=== PATIENT | female | born 1950 | race Hispanic/Latino ===

== ENCOUNTER 2017-03-22 06:09 | Inpatient (IN) | payer MEDICARE ==
[2017-03-21 13:23] LABS: Basophils % (Auto) 1.2 % (0.0-1.8); Eosinophils % (Auto) 3.6 % (0.0-4.3); Hematocrit 39.2 % (30.3-42.9); Hemoglobin 13.8 gm/dl (10.1-14.3); Mean Corpuscular HGB Conc 35 % (30-34); Mean Corpuscular Hemoglobin 32 pg (28-32); Mean Corpuscular Volume 90 fl (79-97); Platelet Count 189 K/mm3 (140-440); Red Blood Count 4.39 M/mm3 (3.65-5.03); Red Cell Distribution Width 12.8 % (13.2-15.2); White Blood Count 4.4 K/mm3 (4.5-11.0)
--- NOTE | 2017-03-21 13:28 | Anesthesia Consultation ---
Anesthesia Consult and Med Hx Date of service: 03/21/17 - Airway Anesthetic Teeth Evaluation: Good ROM Head & Neck: Adequate Mental/Hyoid Distance: Adequate Mallampati Class: Class II Intubation Access Assessment: Probably Good - Pulmonary Exam CTA: Yes - Cardiac Exam Cardiac Exam: RRR - Pre-Operative Health Status ASA Pre-Surgery Classification: ASA3 Proposed Anesthetic Plan: General - Cardiovascular System Hx Hypertension: Yes Hx Heart Murmur: Yes - Central Nervous System Hx Back Pain: Yes (sleeps in recliner due to back issues) Hx Psychiatric Problems: No - Other Systems Hx Alcohol Use: Yes (occas) Hx Cancer: No
[2017-03-21 13:35] LABS: Anion Gap 18 mmol/L; Blood Urea Nitrogen 22 mg/dL (7-17); Calcium 9.6 mg/dL (8.4-10.2); Carbon Dioxide 25 mmol/L (22-30); Chloride 101.3 mmol/L (98-107); Glucose 219 mg/dL (65-100); Sodium 140 mmol/L (137-145)
[~2017-03-22 06:09] MED LIST: ANCEF/STERILE WATER 2 GM/20 ML 2 GM/20 ML SYRINGE IV NR; NACL 0.9% 1000 ML 1,000 ML IV SCH
[2017-03-22] MEDS ORDERED: NACL BACTERIOSTATIC INFILTRATI ONE (06:42)
[2017-03-22] MEDS ORDERED: DIPRIVAN 10 MG/ML IV ONE (07:10)
[2017-03-22] MEDS ORDERED: DILAUDID ONE (07:11)
[2017-03-22] MEDS ORDERED: XYLOCAINE MPF 2% ONE (07:11)
[2017-03-22] MEDS ORDERED: ZOFRAN ONE (07:11)
[2017-03-22] MEDS ORDERED: ZEMURON IV ONE (07:12)
[2017-03-22] MEDS ORDERED: HEPARIN 10,000 UNITS/10 ML ONE ×2 (07:12→07:35)
[2017-03-22] MEDS ORDERED: DECADRON ONE (07:12)
--- NOTE | 2017-03-22 07:29 | Anesthesia Day of Surgery ---
Anesthesia Day of Surgery - Day of Surgery Patient Examined: Yes Patient H&P Reviewed: Yes Patient is NPO: Yes
[2017-03-22] MEDS ORDERED: XYLOCAINE 1% MPF 5 mL ONE (07:35)
[2017-03-22] MEDS ORDERED: GELFOAM TP ONE ×2 (07:35→10:14)
[2017-03-22] MEDS ORDERED: THROMBIN (BOVINE) TP ONE (07:35)
[2017-03-22] MEDS ORDERED: NACL 0.9% 500 ML 500 ML ONE (07:35)
[2017-03-22] MEDS ORDERED: MARCAINE 0.5% 30 ML INFILTRATI ONE (07:50)
[2017-03-22] MEDS ORDERED: PEPCID IV NR (08:00)
[2017-03-22] MEDS ORDERED: VANCOMYCIN/NS 1 GM/250 ML 1 GM/250 ML BAG IV NR (08:00)
[2017-03-22] MEDS ORDERED: RIFADIN ONE (09:35)
[2017-03-22] MEDS ORDERED: NACL 0.9% IR ONE (10:14)
[2017-03-22] MEDS ORDERED: MARCAINE 0.5% INFILTRATI ONE (10:15)
[2017-03-22] MEDS ORDERED: THROMBIN SPRAYKIT (BOVINE) TP ONE (10:15)
[2017-03-22] MEDS ORDERED: HEPARIN 10,000 UNITS/10 ML 2,000 UNIT in NACL 0.9% 500 ML 500 ML IR ONE (10:16)
[2017-03-22] MEDS ORDERED: RIFADIN 600 MG in NACL 0.9% 50 ML IR ONE (10:16)
[2017-03-22] MEDS ORDERED: ZOFRAN IV PRN (12:04)
[2017-03-22] MEDS ORDERED: MORPHINE IV PRN ×2 (12:04)
[2017-03-22] MEDS ORDERED: NARCAN 0.4 MG/1 ML IV PRN (12:04)
[2017-03-22] MEDS ORDERED: NORCO 5/325 PO PRN (12:04)
--- NOTE | 2017-03-22 12:10 | Post Operative Note ---
Pre-op diagnosis: Asymptomatic Right Carotid Artery Stenosis Post-op diagnosis: same Findings: Focal, near-occlusive plaque at carotid bifurcation Procedure: 1. Right Carotid Endarterectomy with patch closure 2. Intraoperative duplex of carotid artery Anesthesia: OSVALDO Surgeon: CLARENCE HERNÁNDEZ Manager Center: [facility] Estimated blood loss: minimal Pathology: list (carotid plaque) Specimen disposition: to lab Condition: stable Disposition: PACU
--- NOTE | 2017-03-22 12:21 | Admit Criteria Form ---
Admission Criteria Documentation: AMBULATORY SURGERY EXCEPTION CRITERIA Ambulatory Surgery Exception Criteria ( Place 'X' for any and all applicable criteria): Surgery or procedure performed on ambulatory basis may require inpatient stay for[A] ANY ONE of the following(1)(2)(3)(4)(5)(6)(7)(8)(9): [X] I. A preoperative situation, condition, or finding that warrants inpatient stay as indicated by ANY ONE of the following: [] a) Inpatient care needed because of severity of a disease or condition rather than the surgery (eg, severe cardiac or respiratory disease, severe infection) (15) (16 ) (17) (18) [] b) Emergent procedure (eg, angioplasty for acute ischemia)(19) [] c) Complex surgical approach or situation as indicated by ANY ONE of the following(3): [] i) Open approach needed instead of usual endoscopic, transcatheter, or other less invasive procedure [] ii) Difficult approach because of previous operation [] iii) Airway monitoring required after open neck procedures(20)(21) [] iv) Large mass requiring unusually extensive dissection [] v) Additional complicating feature requiring inpatient care (eg, drain management)(22(23): [X] d) Major surgery in a pt with high anesthetic risk as indicated by ANY ONE of the following (2)(3)(5)(7)(8): [X] i) ASA risk class III or higher (severe systemic disease impairing function) [D] [] ii) Advanced age (eg, older than 85 years)(14)(24) [] iii) Symptomatic heart failure(25) [] iv) Symptomatic asthma or COPD(8)(21) [] v) Morbid obesity with hemodynamic or respiratory problems(20)( 21)(26)(27) [] vi) Obstructive sleep apnea(20)(21) [] vii) Former premature infants who are younger than 60 weeks [] viii) High risk for severe postoperative abnormalities (eg, severe postoperative hypocalcemia after parathyroidectomy for severe hyperparathyroidism)(27)( 28) [] ix) Unstable angina(25) [] e) Drug-related risk requiring inpatient stay as indicated by ANY ONE of the following(5)(10)(14)(32)(33) [] i) Procedure requires discontinuing drugs or other therapy (eg , antiarrhythmic medication, antiseizure medication), which necessitates inpatient observation or treatment.(18)(31) [] ii) Major surgery and high risk drug use as indicated by ANY ONE of the following: [] 1) Active abuse of cocaine or similar drug [] 2) Monoamine oxidase inhibitor use [] 3) Other drug identified as posing risk [] f) Inadequate outpatient care situation as indicated by ANY ONE of the following(5)(10)(14)(32)(33) [] i) Patient lives remote from medical facility and procedure has urgent complication potential, and temporary nearby residence cannot be arranged [] ii) Patient will have postprocedure incapacitation and inadequate assistance at home, or alternative level of care cannot be arranged. [] iii) Patient will have long general anesthesia or procedure side effect resolution time, and competent person to stay with patient on first postoperative night at home or alternative level of care cannot be arranged. []iv) Other inadequate outpatient situation that cannot be handled by other means [] II. A perioperative event, condition, or finding that warrants inpatient stay as indicated by ANY ONE of the following (1)(2)(3): [] a) Inadequate physiologic recovery: cardiovascular, respiratory, or hemodynamic status not normal or near preoperative baseline(18) [] b) Hemodynamic instability [] c) Patient not alert with near normal or baseline mental status [] d) Temperature not normal or as expected and not appropriate for outpatient treatment of condition [] e) Ambulatory or appropriate activity level status not yet achieved post procedure [E](34)(35)(36) [] f) Operative site not appropriate (eg, unexpected or excessive drainage or bleeding) [] g) Postoperative effects not resolved or adequately managed (eg, significant pain or vomiting not appropriate for outpatient or next level of care)(10)(12) [] h) Complicating features requiring inpatient care as indicated by ANY ONE of the following(37): [] i) Severe complications of procedure (eg, bowel injury, airway compromise, vascular injury,severe hemorrhage) [] ii) Extensive (eg, dissection far beyond usual scope of procedure ) or prolonged (eg, 120 minutes beyond usual) surgery needed requiring inpatient postoperative care [] iii) Conversion to an open or complex procedure that requires inpatient care (eg, open vs laparoscopic cholecystectomy, abdominal vs vaginal hysterectomy)(38) [] iv) Comorbid condition or test result identified during or post procedure that requires inpatient care (7) [] v) Malignant hyperthermia(30) [] vi) Other complicating feature requiring inpatient care(22)(23) Inpatient stay may be needed until ALL of the following are present (1)(2)(3)(4) (5)(6)(10)(14)(33)(40): []a) Physiologic recovery: cardiovascular, respiratory, and hemodynamic status normal or near preoperative baseline []b) Hemodynamic stability []c) Patient alert, with near normal or baseline mental status []d) Temperature appropriate: patient afebrile or temperature appropriate for outpt treatment of condition []e) Activity level appropriate: ambulatory or appropriate activity level post procedure []f) Operative site appropriate as indicated by ALL of the following: []i) Site dry or with expected drainage []ii) Any blood noted is as expected for procedure. []g) Postoperative effects resolved or managed as indicated by ALL of the following: []i) Pain management appropriate for outpatient (or next level of) care(10) []ii) Minimal nausea and vomiting: if present, successfully treated with oral medication(12) []iii) Headache, dizziness, or drowsiness (if present) are mild. []h) Voiding status acceptable as indicated by ANY ONE of the following: []i) Voiding spontaneously []ii) No voiding but instructions given for follow-up in 6 to 8 hours []iii) Urinary catheter in place, and instructions given for follow-up []i) Complicating features requiring inpatient care manageable at a lower level of care(37) []j) Comorbid conditions manageable at a lower level of care(37) The original [employer] content created by [employer] has been revised. The portions of the content which have been revised are identified through the use of italic text or in bold, and [facility] [employer] has neither reviewed nor approved the modified material. All other unmodified content is copyright [employer]. Please see references footnoted in the original [employer] edition 2016 Admission Criteria Met: Yes
--- NOTE | 2017-03-22 12:37 | Consultation ---
History of Present Illness - Reason for Consult Consult date: 03/22/17 Post-OP ICU monitoring Requesting physician: CLARENCE HERNÁNDEZ - History of Present Illness 66 y/o female status post carotid endarectomy Past History Past Medical History: hypertension Medications and Allergies Allergies Allergy/AdvReac Type Severity Reaction Status Date / Time atorvastatin calcium Allergy muscle pain Verified 03/16/17 16:54 [From Lipitor] cephalexin monohydrate Allergy pseudomembraneous Verified 03/16/17 16:54 [From Keflex] colitis clindamycin Allergy Hives Verified 03/16/17 16:54 clindamycin HCl Allergy Unknown Verified 03/16/17 16:54 [From Cleocin] clindamycin palmitate HCl Allergy Unknown Verified 03/16/17 16:54 [From Cleocin] clindamycin phosphate Allergy Unknown Verified 03/16/17 16:54 [From Cleocin] erythromycin base Allergy UTI Verified 03/16/17 16:54 guaifenesin [From Robitussin] Allergy Hives Verified 03/16/17 16:54 naproxen sodium [From Aleve] Allergy Unknown Verified 03/16/17 16:54 Home Medications Medication Instructions Recorded Confirmed Last Taken Type Aspirin [Adult Low Dose Aspirin EC] 2 tab PO DAILY 03/16/17 03/16/17 03/21/17 21 :00 History Magnesium 200 mg PO DAILY 03/16/17 03/16/17 03/21/17 21:00 History Multivitamin Tab [Multiple Vitamin 1 each PO QDAY 03/16/17 03/16/17 03/21/17 21: 00 History TAB (Theragran)] Olmesartan/Hydrochlorothiazide 1 tab PO QDAY 03/16/17 03/22/17 03/21/17 21:00 History [Benicar HCT 20-12.5 mg] [place]-3 Fatty Acids/Fish Oil [Fish 1,000 mg PO DAILY 03/16/17 03/22/17 03/21/17 21:00 History Oil] Active Meds: Active Medications Acetaminophen/Hydrocodone Bitart ([place] 5/325) each PO Q6H PRN PRN Reason: Pain, Moderate (4-6) Aspirin (Halfprin Ec) mg PO DAILY ELLE Clopidogrel Bisulfate (Plavix) 75 mg PO QDAY ELLE Docusate Sodium (Colace) 100 mg PO BID ELLE Famotidine (Pepcid) 20 mg IV PREOP NR Stop: 03/22/17 23:59 Last Admin: 03/22/17 07:42 Dose: 20 mg Fish Oil (Fish Oil) 1,000 mg PO DAILY ELLE Sodium Chloride (Nacl 0.9% 1000 Ml) 1,000 mls @ 42 mls/hr IV DIRECT ELLE Last Admin: 03/22/17 07:00 Dose: 42 mls/hr Vancomycin HCl (Vancomycin/Ns 1 Gm/250 Ml) 1 gm in 250 mls @ 167.007 mls/hr IV PREOP NR PRN Reason: Protocol Stop: 03/22/17 23:59 Last Admin: 03/22/17 07:49 Dose: 167.007 mls/hr Dopamine HCl/Dextrose (Intropin Drip 800 Mg/D5w 250 Ml) 250 mls @ 9.777 mls/hr IV TITR ELLE; 5 MCG/KG/MIN PRN Reason: Protocol Sodium Nitroprusside 50 mg/ (Dextrose) 250 mls @ 7.82 mls/hr IV TITR ELLE; 0.25 MCG/KG/MIN PRN Reason: Protocol Sodium Chloride (Nacl 0.9% 1000 Ml) 1,000 mls @ 100 mls/hr IV DIRECT ELLE Miscellaneous Medication (Magnesium [Magnesium]) 200 mg PO DAILY ELLE Miscellaneous Medication (Olmesartan/Hydrochlorothiazide [Benicar Hct 20-12.5 Mg ]) 1 tab PO QDAY ELLE Morphine Sulfate (Morphine) 2 mg IV Q4H PRN PRN Reason: Pain, Moderate (4-6) Morphine Sulfate (Morphine) 4 mg IV Q4H PRN PRN Reason: Pain , Severe (7-10) Multivitamins (Theragran Tab) 1 each PO QDAY ELLE Naloxone HCl (Narcan 0.4 Mg/1 Ml) 0.1 mg IV Q2MIN PRN PRN Reason: Res Rate </= 8 or 02 SAT < 92% Ondansetron HCl (Zofran) 4 mg IV Q8H PRN PRN Reason: Nausea And Vomiting Exam - Constitutional Vitals: Temp Pulse Resp BP Pulse Ox 97.2 F L 68 15 123/55 93 03/22/17 11:54 03/22/17 12:00 03/22/17 12:00 03/22/17 12:00 03/22/17 12:00 Results - Labs CBC & Chem 7: 03/21/17 13:05 03/21/17 13:05 Labs: Abnormal lab results 03/21/17 03/21/17 03/22/17 Range/Units 13:05 13:05 06:50 WBC 4.4 L (4.5-11.0) K/mm3 MCHC 35 H (30-34) % RDW 12.8 L (13.2-15.2) % [place] % (Auto) 14.7 H (0.0-7.3) % Lymph # 0.8 L (1.2-5.4) K/mm3 BUN 22 H (7-17) mg/dL Glucose 219 H (65-100) mg/dL POC Glucose 202 H (70-105) 03/22/17 Range/Units 12:01 WBC (4.5-11.0) K/mm3 MCHC (30-34) % RDW (13.2-15.2) % [place] % (Auto) (0.0-7.3) % Lymph # (1.2-5.4) K/mm3 BUN (7-17) mg/dL Glucose (65-100) mg/dL POC Glucose 229 H (70-105) Assessment and Plan 66 y/o female status post carotid endarterectomy 1. ICU monitoring 2. Follow up vascular recs.
[2017-03-22] MEDS ORDERED: INTROPIN DRIP 800 MG/D5W 250 ML 800 MG/250 ML BAG IV SCH (13:00)
--- NOTE | 2017-03-22 13:16 | Post Anesthesia Evaluation ---
- Post Anesthesia Evaluation Patient Participated: Yes Airway Patent: Yes Stable Respiratory Function: Yes Nausea/Vomiting: No Temp > 96.8F: Yes Pain Manageable: Yes Adequeate Hydration: Yes Anesthesia Complications: No Block Receding Appropriately: Not Applicable Patient on Ventilator: No
[2017-03-22] MEDS ORDERED: NACL 0.9% 1000 ML 1,000 ML IV SCH (14:00)
[2017-03-22] MEDS ORDERED: NIPRIDE 50 MG in D5W 248 ML IV SCH (14:00)
--- NOTE | 2017-03-22 15:37 | Operative Report ---
PREOPERATIVE DIAGNOSIS: High-grade right carotid artery stenosis, asymptomatic. POSTOPERATIVE DIAGNOSIS: High-grade right carotid artery stenosis, asymptomatic. PROCEDURE: 1. Carotid endarterectomy with Dacron patch closure. 2. Intraoperative carotid duplex results. SURGEON: Elijah Haro MD [employer]: Mik Quinn PA-C. COMPLICATIONS: None. FINDINGS: High-grade stenosis at the level of the common carotid artery bifurcation, successful patch closure. INDICATIONS: This patient was found to have high-grade stenosis based on duplex imaging. She met indication for treatment for stroke prevention. She was brought to surgery for this purpose. ANESTHESIA: General. ESTIMATED BLOOD LOSS: 50 mL. COMPLICATIONS: None. DETAIL OF PROCEDURE : Consent was obtained. The patient was taken to the operating room and placed in supine position. Appropriate levels of anesthesia was provided. The patient's cervical area was prepped and draped in sterile fashion. Monitoring lines have been previously placed. The patient's neck and back was positioned appropriately. The procedure began with an incision along the lateral aspect of the neck. We dissected through the subcutaneous tissue and the platysma muscle. We then retracted the sternocleidomastoid posteriorly and then identified the common carotid artery behind the internal jugular vein. The structure was mobilized. The common carotid artery was identified and then encircled within [place]. The facial vein was isolated, transected, and tied. Branch of the ansa was transected after tying. We proceeded on with dissection of the common carotid artery bifurcation. We then exposed the internal carotid artery and protected this with a vessel loop. The external carotid artery was controlled with a vessel loop as well. We administered heparin and after 3 minutes circulation time, we clamped the internal carotid artery with a Kartchner clamp and then controlled the inflow in the external carotid artery. We used an 11 blade to create an endarterectomy. This extended past the plaque and into more normal internal carotid artery. We backbled the internal carotid artery and saw no need for shunting at this time. We used a right angle clamp and a [place] elevator to capture the plaque. The plaque was retrieved from the external carotid artery. We transected the plaque near the common carotid artery bifurcation. The internal carotid artery was then inverted somewhat to retrieve the plaque. This extended higher into the internal carotid artery for approximately 3 cm. At this point, we transected it and then tacked posterior margin of the residual plaque with 7-0 Prolene. This was done in an interrupted fashion. We then irrigated the vessel thoroughly and cleaned all of the loose debris. We then obtained a Dacron patch and soaked this in rifampin. Using 4 needle technique, the patch was sewn into the open internal carotid artery. This was performed without difficulty prior to complete closure. We performed flushing maneuvers. We then irrigated the inner aspects of the vessel thoroughly. At the time of closure, we reestablished flow by allowing blood to the fill the field with back bleeding internal carotid artery. This was temporarily clamped and then we released the clamp and allowed flow to enter the external carotid artery. After several heartbeats to past, we opened the internal carotid artery and then checked for bleeding sites. Patch repairs were performed using 6-0 Prolene. We then used electrocautery to control any bleeding areas in the soft tissue. We used Gelfoam and thrombin and maintained hemostasis. A hockey-stick tipped probe was used to examine the patch. The velocities were acceptable with easily audible diastolic flow. There was no distal patch. There was slight fixed defect which was not flow limiting or obstructive. The proximal margin of the patch and distal appeared to be intact and smooth. No further intervention was necessary at this point. Closure was performed with 3-0 Vicryl on the platysma layer and then skin approximation was performed using 4-0 Monocryl. Dermabond was then applied to the wound. The patient was awakened from anesthesia, having suffered no complications. Neurologically, she was intact. She was taken to the recovery room having suffered no complications. JOB# [id number] CADEN/KRUNAL MARIN
[2017-03-22] MEDS: COLACE PO SCH (23:25)
[2017-03-23] MEDS ORDERED: HALFPRIN EC PO SCH (10:00)
[2017-03-23] MEDS ORDERED: NON-FORMULARY (Olmesartan/Hydrochlorothiazide [Benicar Hct 20-12.5 Mg] 1 TAB) PO SCH (10:00)
[2017-03-23] MEDS ORDERED: THERAGRAN Tab PO SCH (10:00)
[2017-03-23] MEDS ORDERED: PLAVIX PO SCH (10:00)
[2017-03-23] MEDS ORDERED: COZAAR PO SCH (10:00)
[2017-03-23] MEDS ORDERED: FISH OIL PO SCH (10:00)
[2017-03-23] MEDS ORDERED: HCTZ PO SCH (10:00)
[2017-03-23] MEDS ORDERED: MAGNESIUM 200 MG PO SCH (10:00)
[2017-03-23] MEDS ORDERED: MAG-OX PO SCH (10:00)
[2017-03-23] MEDS: COLACE PO SCH (10:07)
--- NOTE | 2017-03-23 11:05 | Progress Note ---
Assessment and Plan 66 y/o female status post carotid endarterectomy 1. Follow up vascular recs 2. May be able for transfer out of unit. 3. Stable from a critical care standpoint. Subjective Date of service: 03/23/17 Interval history: No acute events overnight. No overnight issues. Per nursing has been walking around the unit. Objective - Constitutional Vitals: Vital Signs - 12hr 03/22/17 03/22/17 03/22/17 23:10 23:20 23:30 Temperature Pulse Rate 85 73 75 Pulse Rate [ Apical] Respiratory 19 18 10 L Rate Blood Pressure 139/56 139/56 139/56 O2 Sat by Pulse 96 Oximetry 03/22/17 03/22/17 03/22/17 23:36 23:40 23:50 Temperature Pulse Rate 87 95 H Pulse Rate [ Apical] Respiratory 18 9 L 24 Rate Blood Pressure 139/56 139/56 O2 Sat by Pulse Oximetry 03/23/17 03/23/17 03/23/17 00:00 00:10 00:20 Temperature 98.8 F Pulse Rate 68 67 70 Pulse Rate [ 78 Apical] Respiratory 17 17 14 Rate Blood Pressure 114/55 114/55 114/55 O2 Sat by Pulse 94 94 95 Oximetry 03/23/17 03/23/17 03/23/17 00:30 00:40 00:50 Temperature Pulse Rate 66 69 64 Pulse Rate [ Apical] Respiratory 16 16 16 Rate Blood Pressure 120/59 120/59 120/59 O2 Sat by Pulse 95 95 94 Oximetry 03/23/17 03/23/17 03/23/17 01:00 01:10 01:20 Temperature Pulse Rate 62 62 63 Pulse Rate [ Apical] Respiratory 15 17 13 Rate Blood Pressure 124/60 124/60 120/59 O2 Sat by Pulse 95 95 96 Oximetry 03/23/17 03/23/17 03/23/17 01:30 01:40 01:50 Temperature Pulse Rate 71 62 64 Pulse Rate [ Apical] Respiratory 15 16 13 Rate Blood Pressure 120/59 109/64 109/64 O2 Sat by Pulse 98 96 97 Oximetry 03/23/17 03/23/17 03/23/17 02:00 02:10 02:20 Temperature Pulse Rate 59 L 60 60 Pulse Rate [ Apical] Respiratory 15 13 14 Rate Blood Pressure 131/62 131/62 131/62 O2 Sat by Pulse 95 94 93 Oximetry 03/23/17 03/23/17 03/23/17 02:30 02:40 02:50 Temperature Pulse Rate 61 61 62 Pulse Rate [ Apical] Respiratory 14 16 14 Rate Blood Pressure 120/51 120/51 120/51 O2 Sat by Pulse 94 92 93 Oximetry 03/23/17 03/23/17 03/23/17 03:00 03:10 03:20 Temperature Pulse Rate 62 73 61 Pulse Rate [ Apical] Respiratory 14 13 13 Rate Blood Pressure 109/49 109/49 109/49 O2 Sat by Pulse 92 97 93 Oximetry 03/23/17 03/23/17 03/23/17 03:30 03:40 03:50 Temperature Pulse Rate 60 60 60 Pulse Rate [ Apical] Respiratory 13 14 13 Rate Blood Pressure 115/58 115/58 115/58 O2 Sat by Pulse 98 95 93 Oximetry 03/23/17 03/23/17 03/23/17 04:00 04:10 04:20 Temperature 98.9 F Pulse Rate 62 70 63 Pulse Rate [ 80 Apical] Respiratory 16 15 15 Rate Blood Pressure 115/58 135/60 135/60 O2 Sat by Pulse 95 96 96 Oximetry 03/23/17 03/23/17 03/23/17 04:30 04:40 04:50 Temperature Pulse Rate 62 64 62 Pulse Rate [ Apical] Respiratory 14 15 15 Rate Blood Pressure 125/58 125/58 125/58 O2 Sat by Pulse 96 96 95 Oximetry 03/23/17 03/23/17 03/23/17 05:00 05:10 05:20 Temperature Pulse Rate 60 63 63 Pulse Rate [ Apical] Respiratory 12 13 12 Rate Blood Pressure 122/61 122/61 122/61 O2 Sat by Pulse 97 95 95 Oximetry 03/23/17 03/23/17 03/23/17 05:30 05:40 05:50 Temperature Pulse Rate 60 66 61 Pulse Rate [ Apical] Respiratory 14 16 15 Rate Blood Pressure 122/56 122/56 122/56 O2 Sat by Pulse 97 96 97 Oximetry 03/23/17 03/23/17 03/23/17 06:00 06:10 06:20 Temperature Pulse Rate 60 61 59 L Pulse Rate [ Apical] Respiratory 13 13 13 Rate Blood Pressure 128/52 128/52 128/52 O2 Sat by Pulse 96 94 92 Oximetry 03/23/17 03/23/17 03/23/17 06:30 06:40 06:50 Temperature Pulse Rate 60 59 L 60 Pulse Rate [ Apical] Respiratory 14 14 15 Rate Blood Pressure 112/49 112/49 112/49 O2 Sat by Pulse 95 94 94 Oximetry 03/23/17 03/23/17 03/23/17 07:00 07:10 07:20 Temperature Pulse Rate 60 61 64 Pulse Rate [ Apical] Respiratory 14 13 15 Rate Blood Pressure 112/49 113/47 113/47 O2 Sat by Pulse 94 95 95 Oximetry 03/23/17 03/23/17 03/23/17 08:00 08:08 08:10 Temperature 97.5 F L Pulse Rate 68 Pulse Rate [ Apical] Respiratory 13 Rate Blood Pressure 113/47 120/51 O2 Sat by Pulse 97 96 Oximetry 03/23/17 03/23/17 03/23/17 08:20 08:30 08:40 Temperature Pulse Rate 74 69 68 Pulse Rate [ Apical] Respiratory 15 12 9 L Rate Blood Pressure 120/51 113/47 109/55 O2 Sat by Pulse 94 94 97 Oximetry 03/23/17 03/23/17 03/23/17 08:50 09:00 09:10 Temperature Pulse Rate 79 70 78 Pulse Rate [ Apical] Respiratory 18 16 19 Rate Blood Pressure 109/55 115/51 115/51 O2 Sat by Pulse 95 96 95 Oximetry 03/23/17 03/23/17 03/23/17 09:20 09:30 09:40 Temperature Pulse Rate 69 70 67 Pulse Rate [ Apical] Respiratory 16 16 15 Rate Blood Pressure 115/51 120/55 120/55 O2 Sat by Pulse 95 95 95 Oximetry 03/23/17 03/23/17 03/23/17 10:00 10:10 10:20 Temperature Pulse Rate 73 75 69 Pulse Rate [ Apical] Respiratory 30 H 17 13 Rate Blood Pressure 120/55 150/63 150/63 O2 Sat by Pulse 99 97 95 Oximetry 03/23/17 03/23/17 03/23/17 10:30 10:40 10:50 Temperature Pulse Rate 71 127 H 68 Pulse Rate [ Apical] Respiratory 13 20 Rate Blood Pressure 124/69 120/55 120/55 O2 Sat by Pulse 97 96 96 Oximetry General appearance: Present: no acute distress - EENT Eyes: PERRL ENT: hearing intact, clear oral mucosa - Neck Neck: supple - Respiratory Respiratory effort: normal Respiratory: bilateral: CTA - Breasts Breasts: deferred - Cardiovascular Rhythm: regular Extremities: no ischemia - Gastrointestinal General gastrointestinal: Present: soft, non-tender, normal bowel sounds - Genitourinary Female genitourinary: deferred - Labs CBC & Chem 7: 03/21/17 13:05 03/21/17 13:05 Labs: Abnormal lab results 03/22/17 03/22/17 Range/Units 12:01 21:41 POC Glucose 229 H 265 H (70-105)
--- NOTE | 2017-03-23 11:22 | Short Stay Summary ---
Short Stay Documentation Date of service: 03/23/17 - History H&P: obtained from office Past Medical History: hypertension - Allergies and Medications Current Medications: Allergies atorvastatin calcium [From Lipitor] Allergy (Verified 03/16/17 16:54) muscle pain cephalexin monohydrate [From Keflex] Allergy (Verified 03/16/17 16:54) pseudomembraneous colitis clindamycin Allergy (Verified 03/16/17 16:54) Hives clindamycin HCl [From Cleocin] Allergy (Verified 03/16/17 16:54) Unknown clindamycin palmitate HCl [From Cleocin] Allergy (Verified 03/16/17 16:54) Unknown clindamycin phosphate [From Cleocin] Allergy (Verified 03/16/17 16:54) Unknown erythromycin base Allergy (Verified 03/16/17 16:54) UTI guaifenesin [From Robitussin] Allergy (Verified 03/16/17 16:54) Hives naproxen sodium [From Aleve] Allergy (Verified 03/16/17 16:54) Unknown Home Medications Medication Instructions Recorded Confirmed Last Taken Type Aspirin [Adult Low Dose Aspirin EC] 2 tab PO DAILY 03/16/17 03/16/17 03/21/17 21 :00 History Magnesium 200 mg PO DAILY 03/16/17 03/16/17 03/21/17 21:00 History Multivitamin Tab [Multiple Vitamin 1 each PO QDAY 03/16/17 03/16/17 03/21/17 21: 00 History TAB (Theragran)] Olmesartan/Hydrochlorothiazide 1 tab PO QDAY 03/16/17 03/22/17 03/21/17 21:00 History [Benicar HCT 20-12.5 mg] Millis-3 Fatty Acids/Fish Oil [Fish 1,000 mg PO DAILY 03/16/17 03/22/17 03/21/17 21:00 History Oil] Clopidogrel Bisulfate [Plavix] 75 mg PO DAILY #30 tablet 03/23/17 Unknown Rx Active Medications Acetaminophen/Hydrocodone Bitart (Alpha 5/325) 1 each PO Q6H PRN PRN Reason: Pain, Moderate (4-6) Last Admin: 03/22/17 23:36 Dose: 1 each Aspirin (Halfprin Ec) 81 mg PO DAILY [facility] Last Admin: 03/23/17 10:06 Dose: 81 mg Clopidogrel Bisulfate (Plavix) 75 mg PO QDAY [facility] Last Admin: 03/23/17 10:08 Dose: Not Given Docusate Sodium (Colace) 100 mg PO BID [facility] Last Admin: 03/23/17 10:07 Dose: Not Given Fish Oil (Fish Oil) 1,000 mg PO DAILY [facility] Last Admin: 03/23/17 10:06 Dose: 1,000 mg Hydrochlorothiazide (Hctz) 12.5 mg PO QDAY [facility] Last Admin: 03/23/17 10:07 Dose: 12.5 mg Dopamine HCl/Dextrose (Intropin Drip 800 Mg/D5w 250 Ml) 800 mg in 250 mls @ 9.777 mls/hr IV TITR [facility]; 5 MCG/KG/MIN PRN Reason: Protocol Sodium Nitroprusside 50 mg/ (Dextrose) 250 mls @ 7.82 mls/hr IV TITR [facility]; 0.25 MCG/KG/MIN PRN Reason: Protocol Sodium Chloride (Nacl 0.9% 1000 Ml) 1,000 mls @ 100 mls/hr IV DIRECT [facility] Losartan Potassium (Cozaar) 50 mg PO QDAY [facility] Last Admin: 03/23/17 10:06 Dose: 50 mg Magnesium Oxide (Mag-Ox) 400 mg PO QDAY [facility] Last Admin: 03/23/17 10:06 Dose: 400 mg Morphine Sulfate (Morphine) 2 mg IV Q4H PRN PRN Reason: Pain, Moderate (4-6) Morphine Sulfate (Morphine) 4 mg IV Q4H PRN PRN Reason: Pain , Severe (7-10) Multivitamins (Theragran Tab) 1 each PO QDAY [facility] Last Admin: 03/23/17 10:06 Dose: 1 each Naloxone HCl (Narcan 0.4 Mg/1 Ml) 0.1 mg IV Q2MIN PRN PRN Reason: Res Rate </= 8 or 02 SAT < 92% Ondansetron HCl (Zofran) 4 mg IV Q8H PRN PRN Reason: Nausea And Vomiting - Physical exam Breasts: deferred Extremities: no ischemia - Brief post op/procedure progress note Date of procedure: 03/22/17 Pre-op diagnosis: right carotid artery stenosis Post-op diagnosis: same Procedure: right CEA Anesthesia: GETA Findings: near-occlusive plaque at carotid bifurcation Surgeon: CLARENCE HERNÁNDEZ Enterprise Services Manager: PETER BEST Estimated blood loss: 50-100ml Pathology: list (plaque) Specimen disposition: to lab Condition: stable - Hospital course Hospital course: Patient had uneventful postoperative course - Disposition Condition at discharge: Good Disposition: [id number]-01 TO HOME OR SELFCARE Short Stay Discharge Plan Diet: low salt Wound: open to air Special Instructions: no heavy lifting Follow up with: PRIMARY CARE, [Primary Care Provider] - 7 Days CLARENCE HERNÁNDEZ MD [Staff Physician] - 14 Days Prescriptions: Clopidogrel Bisulfate [Plavix] 75 mg PO DAILY #30 tablet
[2017-03-23 12:06] VITALS: BP 134/44
--- NOTE | 2017-03-24 08:15 | Vascular Lab Report ---
INTRAOPERATIVE CAROTID ARTERY DUPLEX Reason for exam: Completion of carotid endarterectomy Comments on the right: The common and internal carotid arteries are patent without evidence of intraluminal irregularities. Flow velocities appear to be appropriate. No obvious technical defects at the endarterectomy site appreciated. Impression: No obvious technical imperfections at the endarterectomy site.
== END 2017-03-23 14:15 | disposition home or self-care (01) | DRG 39 ==
LOC: 3A 06:09 → CC1 15:41
PROVIDERS: ADMIT Surgery Vascular Surgery; ATTEND Surgery Vascular Surgery
PROC: 03CH0Z6 (ICD-10-PCS; principal; 2017-03-22)
PROC: 03UH0JZ Supplement Right Common Carotid Artery with Synthetic Substitute, Open Approach (ICD-10-PCS; 2017-03-22)
DX: I65.21 Occlusion and stenosis of right carotid artery (principal); M54.9 Dorsalgia, unspecified; I10 Essential (primary) hypertension; Z79.82 Long term (current) use of aspirin
CPT/HCPCS: 36415; 36620; 80048; 82962; 85025; 88304; 88311; 94760; A4649; C1768; J1100; J1170; J1644; J2405; J2704; J3370; J3490; J7030; J7040